=== PATIENT | male | born 1940 | race Caucasian/White ===

== ENCOUNTER → 2016-04-13 | Outpatient (CLI) | payer MEDICARE, BC ==
[~2016-04-13] MED LIST: ACID REDUCER75 M1 PO; ALBUTEROL17 GM INH; ALTACE PO; ASPIRIN PO; BAYER ASPIRIN325 M1 PO; C-10001000 M1 PO; CERTAGEN PO; COMBIVENT MININEB INH; COMBIVENT U/D3 M1 NEB; FISH OIL 1,0001 CAP PO; FISH OIL 1,2001 EAC4 PO; FLOVENT HFA10.6 G1 INH; FLOVENT HFA12 GM INH; FUROSEMIDE40 MG PO; GLUCOPHAGE500 M1 PO; GLUCOTROL PO; GLYBURIDE-METFO1 TA4; HYDROCODON-ACE1 EAC5 PO; HYDROCODON-ACE1 EAC9 PO; JANUVIA PO; JANUVIA100 MG PO; MEN'S DAILY FO1 EACH PO; METFORMIN HCL500 M3 PO; NEURONTIN800 MG PO; RAMIPRIL5 MG PO; SERTRALINE HCL50 M1 PO; SIMVASTATIN40 MG PO; VIT C PO; VITAMIN C500 MG PO; ZANTAC PO; ZOCOR PO
[2016-04-13 08:35] LABS: HEMATOCRIT 39.8 % (38.0-50.0); HEMOGLOBIN 13.1 gm/dL (13.0-16.0); MEAN CELL VOLUME 87.5 FL (83-96); MEAN CORPUSCULAR HEMOGLOBIN 28.8 PG (28-34); MEAN PLATELET VOLUME 7.8 FL (6.5-11.5); RED BLOOD COUNT 4.55 X10e (3.90-5.60); RED CELL DISTRIBUTION WIDTH 14.3 % (11.0-15.5); WHITE BLOOD COUNT 10.4 X10e3 (4.0-10.5)
[2016-04-13 09:03] LABS: PARTIAL THROMBOPLASTIN TIME 28.5 SECONDS (23.5-31.3); PROTHROMBIN TIME (PATIENT) 10.1 SECONDS (9.6-11.5)
== END | disposition home or self-care (01) ==
LOC: CIVR 08:09
PROVIDERS: Internal Medicine Pulmonary Disease
DX: R91.1 Solitary pulmonary nodule (principal)
CPT/HCPCS: 36415; 85027; 85610; 85730

== ENCOUNTER 2016-04-20 08:24 | Inpatient (IN) | payer MEDICARE, BC ==
--- NOTE | ~2016-04-20 | DS ---
Unit #: [id number] #: [id number] Patient: DOM DUMONT [id number] [address] [place], [place] [address] [id number] I MR#: [id number] NAME: DOM DUMONT ROOM: 204 Age: 75 Sex: M Admission Date: 04/20/2016 : 1940 Discharge Date: 04/23/2016 Attending Physician: Dinesh Rasmussen M.D. Referring Physician: Dinesh Rasmussen M.D. Primary Care Physician: Filemon Lagunas M.D. DISCHARGE SUMMARY FINAL DIAGNOSIS Right pneumothorax. OTHER DIAGNOSES 1. Right lung non-small cell lung cancer. 2. Chronic obstructive pulmonary disease. 3. Pulmonary fibrosis. CONSULTANTS Interventional Radiology, Dr. Wilmar De Leon. HOSPITAL COURSE Mr. Dumont is a 75-year-old male, found to have a fairly large right upper lobe mass with a satellite. He had PET scan, would suggest uptake and therefore a fine-needle aspirate was requested as an outpatient. He underwent FNA per IR on 04/20/2016, but after the procedure, he had a right pneumothorax. IR immediately placed the chest tube. He has been observed over the last couple of days and was doing better and therefore the chest tube was placed on water seal today. After discussing the case with Dr. De Leon, we proceeded to pull the right chest tube, because he had no air leak and his water seal chest x-ray was fine. We will check a chest x-ray in 2 hours at about 6:00 p.m., and if that is not revealing a pneumothorax, then he will be discharged. He should follow up with me in about 2 weeks. He is to follow up with Dr. Chandler, that he will be referred to Dr. Db Chandler as an outpatient for consideration of surgery. However, FEV1 was 1.69, 51% predicted back in 08/2015 and this mass was noted have a satellite nodule. Therefore, he may or may not be a candidate for surgery. DISCHARGE MEDICATIONS He will be discharged on the following medicines; albuterol inhaler two puffs b.i.d. p.r.n., Neurontin 800 mg p.o. b.i.d., sertraline 50 mg p.o. daily, Glucophage 500 mg p.o. daily, Januvia 100 mg p.o. daily, Lasix 40 mg p.o. daily, simvastatin 40 mg p.o. daily, ramipril 5 mg p.o. daily, Zantac/ranitidine 75 mg p.o. daily, Catherine aspirin 325 mg p.o. daily, Chatham 7.5/325 p.o. t.i.d., Glucotrol 5 mg p.o. q.a.m., and ascorbic acid 500 mg p.o. daily. Saturations were acceptable on room air. He does not need home O2. DISCHARGE INSTRUCTIONS Diet will be no concentrated sweets/consistent carbohydrate and activity will be as tolerated, but he should probably take it easy for the next week or two. He will not likely need home oxygen. Unit #: [id number] #: [id number] Patient: DOM DUMONT Dictated by... Keith Stockton/gavin TD: 04/23/2016 13:04 JOB #: [id number] DISCHARGE SUMMARY X Dinesh Rasmussen MD DISCHARGE SUMMARY
--- NOTE | ~2016-04-20 | CR71 ---
[facility] A Service of [facility] RADIOLOGY TEXT RESULTS PATIENT: DOM ROGERS LOCATION: [place] [address] : 41 UNIT #: [id number] AGE: [address]: Dinesh Rasmussen MD SEX: M ORDER DR: [id number] [place] [id number] [facility]. [place], [place] [address] [id number] MR#: [id number] Acc #: [id number] NAME: DOM ROGERS : 1940 SEX: M STUDY DATE/TIME: 04/20/2016 11:56 UNIT: CIVR ROOM: STUDY DESCRIPTION: CR Chest Single View Attending Physician: Dinesh Rasmussen M.D. Referring Physician: Dinesh Rasmussen M.D. Primary Care Physician: Filemon Lagunas M.D. MEDICAL IMAGING REPORT This report is preliminary unless electronic signature is present EXAM AP chest x-ray. HISTORY Right lung biopsy under CT guidance. Evaluate for pneumothorax. TECHNIQUE Single AP view of the chest was obtained. FINDINGS There is a right-sided pneumothorax that is most prominent at the apex. There is approximately 3-4 cm of separation between the top of the lung in the chest wall at the apex. There is also small extension of the pneumothorax laterally down to the costophrenic angle. There is no significant midline shift. No new infiltrates are seen. IMPRESSION Moderate right pneumothorax post biopsy, predominately at the apex. STAT * RESULT Dictated by... Robbie Javier M.D. THIS IS AN ELECTRONICALLY VERIFIED REPORT Robbie Javier M.D. at 04/20/2016 4:45 PM JAIRF/ilana TD: 04/20/2016 12:34 JOB #: [id number] [facility] A Service of [facility] RADIOLOGY TEXT RESULTS PATIENT: DOM ROGERS LOCATION: [facility] [address] [facility] #: [id number] : 41 UNIT #: [id number] AGE: [address]: Dinesh Rasmussen MD SEX: M ORDER DR: MEDICAL IMAGING REPORT COPY
--- NOTE | ~2016-04-20 | CR72 ---
[facility] A Service of [facility] & [facility] RADIOLOGY TEXT RESULTS PATIENT: DOM ROGERS LOCATION: A : 41 UNIT #: [id number] AGE: [address]: Dinesh Rasmussen MD SEX: M ORDER DR: [id number] [facility] [address] [place], [place] [address] [id number] I MR#: [id number] Acc #: [id number] NAME: DOM ROGERS : 1940 SEX: M STUDY DATE/TIME: 04/22/2016 18:16 UNIT: A ROOM: [facility] STUDY DESCRIPTION: CR Chest Single View Portable Attending Physician: Dinesh Rasmussen M.D. Referring Physician: Dinesh Rasmussen M.D. Ordering Physician: Dinesh Rasmussen M.D. Primary Care Physician: Filemon Lagunas M.D. MEDICAL IMAGING REPORT This report is preliminary unless electronic signature is present EXAM Portable chest 04/22/2016 HISTORY Chest tube removed. An AP view of the chest was obtained. FINDINGS Redemonstrated is the mass in the right upper lobe. There is extensive right-sided subcutaneous emphysema. The pigtail drain has been removed. CONCLUSION 1. Interim removal of right-sided pigtail drain with no pneumothorax. 2. Right upper lobe mass. 3. Chronic infiltrates throughout both lungs. Dictated by... Wesley Orta M.D. THIS IS AN ELECTRONICALLY VERIFIED REPORT Wesley Orta M.D. at 04/26/2016 5:10 PM MP/sabina TD: 04/23/2016 08:07 JOB #: [id number] MEDICAL IMAGING REPORT COPY
--- NOTE | ~2016-04-20 | CR72 ---
[facility] A Service of [facility] & [facility] RADIOLOGY TEXT RESULTS PATIENT: DOM ROGERS LOCATION: A : 41 UNIT #: [id number] AGE: [address]: Dinesh Rasmussen MD SEX: M ORDER DR: [id number] [facility] [address] [facility]. [place], [place] [address] [id number] I MR#: [id number] Acc #: [id number] NAME: DOM ROGERS : 1940 SEX: M STUDY DATE/TIME: 04/20/2016 12:48 UNIT: A ROOM: [facility] STUDY DESCRIPTION: CR Chest Single View Portable Attending Physician: Dinesh Rasmussen M.D. Referring Physician: Dinesh Rasmussen M.D. Ordering Physician: Dinesh Rasmussen M.D. Primary Care Physician: Filemon Lagunas M.D. MEDICAL IMAGING REPORT This report is preliminary unless electronic signature is present EXAM Portable chest. HISTORY 75-year-old male with follow-up pneumothorax from lung biopsy today. COMPARISON STUDIES Chest x-ray, earlier today. FINDINGS The patient's right-sided pneumothorax has increased in size. At this point, there is no mediastinal shift. The remainder of the study is unchanged. IMPRESSION There is a moderate-sized right pneumothorax, which overall has increased in size, compared with the initial post biopsy x-ray. There is no evidence of any mediastinal shift at this point. Dictated by... Wilmar De Leon M.D. THIS IS AN ELECTRONICALLY VERIFIED REPORT Wilmar De Leon M.D. at 04/20/2016 4:41 PM BOZENA/keaton TD: 04/20/2016 16:20 JOB #: [id number] MEDICAL IMAGING REPORT COPY
--- NOTE | ~2016-04-20 | CR72 ---
[facility] A Service of [facility] & [facility] RADIOLOGY TEXT RESULTS PATIENT: DOM ROGERS LOCATION: C2A : 41 UNIT #: [id number] AGE: [address]: Dinesh Rasmussen MD SEX: M ORDER DR: [id number] [facility] [address] [facility]. [place], [place] [address] [id number] I MR#: [id number] Acc #: [id number] NAME: DOM ROGESR : 1940 SEX: M STUDY DATE/TIME: 04/20/2016 15:28 UNIT: A ROOM: [facility] STUDY DESCRIPTION: CR Chest Single View Portable Attending Physician: Dinesh Rasmussen M.D. Referring Physician: Dinesh Rasmussen M.D. Primary Care Physician: Filemon Lagunas M.D. MEDICAL IMAGING REPORT This report is preliminary unless electronic signature is present EXAM Portable chest, 04/20/2016 INDICATION 75-year-old male with followup pneumothorax on the right. Comparison with chest x-ray from 04/20/2016 at 1248 hours. FINDINGS There has been placement of a pigtail chest tube and the pneumothorax has decreased in size now with a small residual apical component. The remainder of the study is unchanged. IMPRESSION New since the previous chest x-ray is a right pigtail chest tube. There has been decrease in size of a right-sided pneumothorax with a small residual right apical component. Dictated by... Wilmar De Leon M.D. THIS IS AN ELECTRONICALLY VERIFIED REPORT Wilmar De Leon M.D. at 04/22/2016 7:32 AM BOZENA/tomer TD: 04/21/2016 03:17 JOB #: [id number] MEDICAL IMAGING REPORT COPY
--- NOTE | ~2016-04-20 | CR72 ---
[facility] A Service of [facility] & [facility] RADIOLOGY TEXT RESULTS PATIENT: DOM ROGERS LOCATION: C2A 204 : 41 UNIT #: [id number] AGE: [address]: Dinesh Rasmussen MD SEX: M ORDER DR: [id number] [facility] [address] [facility] [place], [place] [address] [id number] I MR#: [id number] Acc #: [id number] NAME: DOM ROGERS : 1940 SEX: M STUDY DATE/TIME: 04/23/2016 9:13 UNIT: C2A ROOM: [facility] STUDY DESCRIPTION: CR Chest Single View Portable Attending Physician: Dinesh Rasmussen M.D. Referring Physician: Dinesh Rasmussen M.D. Ordering Physician: Dinesh Rasmussen M.D. Primary Care Physician: Filemon Lagunas M.D. MEDICAL IMAGING REPORT This report is preliminary unless electronic signature is present EXAM Portable chest HISTORY Short of air with activity since 04/20/2016. Pulmonary fibrosis. COPD. Coronary artery disease. Diabetes. Smoker. COMMENT Single frontal portable view of the chest timed 09:13 04/23/2016 compared to 04/22/2016. There is again a large amount of right-sided subcutaneous air. This is slightly improved from yesterday's film. There is an opacity in the right upper lung again seen concerning for a mass. Please correlate with known diagnosis. Appearance is most consistent with lung cancer. Please refer back to PET/CT from 03/31/2016. Heart size is normal. There are again extensive changes of pulmonary fibrosis with some peripheral pleural thickening or peripheral extension of the mass in the right upper lobe. No definite pneumothorax. On comparison to yesterday's film, the mass-like area appeared smaller. Please correlate with interval therapy. IMPRESSION Redemonstration of a right upper lobe mass apparently smaller since yesterday's film but please correlate for any interval therapy. Again identified is right-sided subcutaneous emphysema fairly extensive slightly improved. No pneumothorax is seen. Underlying changes of pulmonary fibrosis redemonstrated. Dictated by... [facility] A Service of [facility] & [facility] RADIOLOGY TEXT RESULTS PATIENT: DOM ROGERS LOCATION: [place] [address] : 41 UNIT #: [id number] AGE: [address]: Dinesh Rasmussen MD SEX: M ORDER DR: Funmilayo Yoder M.D. THIS IS AN ELECTRONICALLY VERIFIED REPORT Funmilayo Yoder M.D. at 04/23/2016 4:00 PM MARIA FERNANDA/maikel TD: 04/23/2016 12:49 JOB #: [id number] MEDICAL IMAGING REPORT COPY
--- NOTE | ~2016-04-20 | CR72 ---
[facility] A Service of [facility] & [facility] RADIOLOGY TEXT RESULTS PATIENT: DOM ROGERS LOCATION: C2A 204 : 41 UNIT #: [id number] AGE: [address]: Dinesh Rasmussen MD SEX: M ORDER DR: [id number] [facility] [address] [place], [place] [address] [id number] I MR#: [id number] Acc #: [id number] NAME: DOM ROGERS : 1940 SEX: M STUDY DATE/TIME: 04/21/2016 3:11 UNIT: A ROOM: [facility] STUDY DESCRIPTION: CR Chest Single View Portable Attending Physician: Dinesh Rasmussen M.D. Referring Physician: Dinesh Rasmussen M.D. Ordering Physician: Ayesha Pappas M.D. Primary Care Physician: Filemon Lagunas M.D. MEDICAL IMAGING REPORT This report is preliminary unless electronic signature is present EXAM AP portable chest DATE: 04/21/2016 at 03:11 HISTORY Follow up pneumothorax with chest tube placement. COMPARISON AP portable chest 04/20/2016 at 15:28. FINDINGS Right apical pneumothorax is nearly completely resolve with only tiny right apical pneumothorax component remaining. Extensive right chest wall subcutaneous emphysema, however, has developed in the interval. The patient's mass-like density or consolidative change in the right upper lobe is again noted demonstrated to better advantage on previous PET/CT. Emphysematous changes are present with bibasilar fibrosis and/or atelectasis. There is some new mild atelectatic type changes in the left lung base with probable trace left pleural effusion. Stable heart size. A pigtail drain remains appropriately position. Dictated by... Zoë Gan M.D. THIS IS AN ELECTRONICALLY VERIFIED REPORT Zoë Gan M.D. at 04/21/2016 10:25 PM LL/brendan TD: 04/21/2016 12:24 JOB #: [id number] [facility] A Service of [facility] & [facility] RADIOLOGY TEXT RESULTS PATIENT: DOM ROGERS LOCATION: [facility] 204- : 41 UNIT #: [id number] AGE: [address]: Dinesh Rasmussen MD SEX: M ORDER DR: MEDICAL IMAGING REPORT COPY
--- NOTE | ~2016-04-20 | CT134 ---
[facility] A Service of [facility] & [facility] RADIOLOGY TEXT RESULTS PATIENT: DOM ROGERS LOCATION: C2A : 41 UNIT #: [id number] AGE: [address]: Dinesh Rasmussen MD SEX: M ORDER DR: [id number] [place] [id number] [facility]. [place], [place] [address] [id number] I MR#: [id number] Acc #: [id number] NAME: DOM ROGERS : 1940 SEX: M STUDY DATE/TIME: 04/20/2016 11:24 UNIT: A ROOM: [facility] STUDY DESCRIPTION: CT Guide Attending Physician: Dinesh Rasmussen M.D. Referring Physician: Dinesh Rasmussen M.D. Ordering Physician: Dinesh Rasmussen M.D. Primary Care Physician: Filemon Lagunas M.D. MEDICAL IMAGING REPORT This report is preliminary unless electronic signature is present EXAM CT-guided right lung biopsy, 04/20/2016 INDICATIONS 75-year-old male with right lung mass suspicious for malignancy. Medications IV Versed and Fentanyl utilized for conscious sedation. Conscious sedation time was monitored by appropriately credentialed radiology nursing staff. The risks, benefits, and alternatives of the procedure were discussed with the patient including risk for pneumothorax and possible chest tube placement and informed consent was obtained. In the procedure room a time-out was performed confirming correct patient and procedure. All elements maximum sterile-barrier technique utilized according guidelines appropriate for the procedure. This CT exam was performed with one or more of the following radiation dose reduction techniques: automatic exposure control, adjustment of mA and/or kV according to patient size, and iterative reconstruction. TECHNIQUE Correlation is made with A PET/CT from 03/31/2016. Patient was placed in the supine position and a preliminary CT scan was performed to identify the right lung mass. The overlying skin was prepped and draped in the usual sterile fashion. 1% lidocaine was utilized to anesthetize the skin and underlying subcutaneous tissues. Next, under CT guidance, a 17-gauge guide needle was advanced into the mass using an anterior approach. Through this access, 3 cores were obtained using an 18 gauge needle. The needle was removed and a sterile dressing was applied. Postprocedure CT demonstrated a small pneumothorax ST[facility]. [facility] A Service of [facility] RADIOLOGY TEXT RESULTS PATIENT: DOM ROGERS LOCATION: [facility] 204-01 : 41 UNIT #: [id number] AGE: [address]: Dinesh Rasmussen MD SEX: M ORDER DR: in the right lung apex. IMPRESSION Technically successful CT-guided right lung biopsy. Dictated by... Wilmar De Leon M.D. THIS IS AN ELECTRONICALLY VERIFIED REPORT Wilmar De Leon M.D. at 04/22/2016 7:33 AM BOZENA/tomer TD: 04/21/2016 05:29 JOB #: [id number] MEDICAL IMAGING REPORT COPY
--- NOTE | ~2016-04-20 | XA96 ---
[facility] A Service of [facility] & [facility] RADIOLOGY TEXT RESULTS PATIENT: DOM ROGERS LOCATION: C2A : 41 UNIT #: [id number] AGE: [address]: Dinesh Rasmussen MD SEX: M ORDER DR: [id number] [facility] [address] [facility]. [place], [place] [address] [id number] I MR#: [id number] Acc #: [id number] NAME: DOM ROGERS : 1940 SEX: M STUDY DATE/TIME: 04/20/2016 13:01 UNIT: C2A ROOM: 204 STUDY DESCRIPTION: XA Chest Tube for Pneumo or pl Attending Physician: Dinesh Rasmussen M.D. Referring Physician: Dinesh Rasmussen M.D. Primary Care Physician: Filemon Laugnas M.D. MEDICAL IMAGING REPORT This report is preliminary unless electronic signature is present PROCEDURE Fluoroscopically guided right chest tube placement. INDICATIONS 75-year-old male with history of a right lung biopsy earlier today who now has an enlarging right pneumothorax and has become hypoxic and requiring increased oxygen demand. The fluoroscopy time was 1.6 minutes. Reference air kerma 7 mGy. Medications: IV Fentanyl utilized. Risks, benefits, and alternatives of the procedure were discussed with the patient and informed consent was obtained. In the procedure room a timeout was performed confirming correct patient and procedure. All elements of maximum sterile-barrier technique utilized according guidelines appropriate for the procedure. TECHNIQUE/FINDINGS Fluoroscopy of the right chest was performed. A skin site was marked in the second interspace anteriorly. Skin was prepped and draped in usual sterile fashion. 1% lidocaine utilized to anesthetize the skin and underlying subcutaneous tissues. Next, under fluoroscopic guidance the pleural space was entered with a 5-Gambian Yueh catheter and there is return of air. Next, a superstiff guidewire was advanced through the catheter. The catheter was removed and the track was dilated to 8-Gambian. Next, an 8-Gambian pigtail catheter was advanced into the upper pleural space. Spot images wee taken confirming satisfactory positioning. The chest tube was secured in place with suture and connected to Pleurovac drainage and hooked to wall suction. Final spot image after a short amount of time on wall suction demonstrated significant improvement with essentially resolution of the pneumothorax. Patient was then admitted to the hospital for chest tube management. [facility] A Service of [facility] & [facility] RADIOLOGY TEXT RESULTS PATIENT: DOM ROGERS LOCATION: [facility] : 41 UNIT #: [id number] AGE: [address]: Dinesh Rasmussen MD SEX: M ORDER DR: continuous suction overnight and then a chest x-ray should be performed in the morning to see if there is a persistent pneumothorax. If there is no pneumothorax then the chest tube should be clamped and repeat chest x-ray performed 2 hours after that. IMPRESSION Placement of a right-sided 8-Gambian pigtail chest tube due to enlarging symptomatic pneumothorax. Chest tube placed to wall suction. Please keep chest tube to wall suction overnight and obtain chest x-ray in the morning. Dictated by... Wilmar De Leon M.D. THIS IS AN ELECTRONICALLY VERIFIED REPORT Wilmar De Leon M.D. at 04/22/2016 7:33 AM BOZENA/russ TD: 04/21/2016 07:08 JOB #: [id number] MEDICAL IMAGING REPORT COPY
--- NOTE | ~2016-04-20 | CR72 ---
[facility] A Service of [facility] RADIOLOGY TEXT RESULTS PATIENT: DOM ROGERS LOCATION: [facility] : 41 UNIT #: [id number] AGE: [address]: Dinesh Rasmussen MD SEX: M ORDER DR: [id number] [facility] [address] [facility]. [place], [place] [address] [id number] I MR#: [id number] Acc #: [id number] NAME: DOM ROGERS : 1940 SEX: M STUDY DATE/TIME: 04/22/2016 15:43 UNIT: [facility] ROOM: [facility] STUDY DESCRIPTION: CR Chest Single View Portable Attending Physician: Dinesh Rasmussen M.D. Referring Physician: Dinesh Rasmussen M.D. Ordering Physician: Dinesh Rasmussen M.D. Primary Care Physician: Filemon Lagunas M.D. MEDICAL IMAGING REPORT This report is preliminary unless electronic signature is present EXAM Portable chest, 04/22/2016 COMPARISON 04/22/2016 HISTORY SUPPLIED Chest tube placement. FINDINGS An AP view of the chest is obtained and compared to the earlier film. The pigtail catheter over the right upper chest appears to have been repositioned since the last study. There is no pneumothorax. Right upper lobe mass persists. Interstitial infiltrates are present throughout both lungs. There is extensive subcutaneous emphysema on the right. CONCLUSION 1. Right-sided chest tube appears in appropriate position. 2. Right upper lobe mass, 3. Extensive bilateral interstitial infiltrates. 4. Subcutaneous emphysema, unchanged. Dictated by... Wesley Orta M.D. THIS IS AN ELECTRONICALLY VERIFIED REPORT Wesley Orta M.D. at 04/26/2016 5:09 PM MP/tomer TD: 04/23/2016 00:48 JOB #: [id number] [facility] A Service of [facility] RADIOLOGY TEXT RESULTS PATIENT: DOM ROGERS LOCATION: [facility] : 41 UNIT #: [id number] AGE: [address]: Dinesh Rasmussen MD SEX: M ORDER DR: MEDICAL IMAGING REPORT Page 1 of 1 COPY
--- NOTE | ~2016-04-20 | HP ---
Unit #: [id number] #: [id number] Patient: DOM DUMONT [id number] [address] [address] [id number] I MR#: [id number] NAME: DOM DUMONT ROOM: 204 Age: 75 Sex: M Admission Date: 04/20/2016 : 1940 Attending Physician: Dinesh Rasmussen M.D. Referring Physician: Dinesh Rasmussen M.D. Primary Care Physician: Filemon Lagunas M.D. HISTORY AND PHYSICAL HISTORY OF PRESENT ILLNESS Mr. Silver Dumont is a pleasant gentleman with a history of a lung mass. He is status post thoracentesis. He was seen in our office. He has a history of COPD and now presents with worsening shortness of breath and following an IR-guided thoracentesis where patient had a post procedure pneumothorax. The patient is complaining of some chest tightness but otherwise is feeling fine. We are asked to see him regarding persistent pneumothorax. PAST MEDICAL HISTORY Significant for: 1. COPD. 2. Diabetes. 3. Coronary artery disease. 4. Chronic diastolic heart failure. 5. Chronic kidney disease, stage 3. 6. Intermittent claudication. 7. Pulmonary fibrosis. 8. Solitary pulmonary nodule. 9. Chronic tobacco use. PAST SURGICAL HISTORY Significant for: Stent in 2000. SOCIAL HISTORY The patient is a current every day smoker. Patient smokes one and one-half pack per day. Patient has no history of polysubstance use. FAMILY HISTORY Negative. REVIEW OF SYSTEMS Positive for some chest tightness, some shortness of air as well as lower extremity swelling, erythema for approximately 1 year, edema, and painful to the touch. Otherwise, a 12-point review of systems is negative. PHYSICAL EXAMINATION VITAL SIGNS: T. current 97.4, pulse 97, respiratory rate 22, blood pressure 152/72. HEENT: Extraocular movements are intact. CHEST: Clear to auscultation bilaterally with some decreased breath sounds on the left side. Unit #: [id number] #: [id number] Patient: DOM DUMONT HEART: Regular rate, no gallop. ABDOMEN: Soft, nontender, nondistended. EXTREMITIES: Edema trace to +1. DIAGNOSTIC STUDIES LABORATORY: White count 9.9, hemoglobin 12.9, platelets 260. INR 1.0. IMAGING: Chest x-ray shows moderate pneumothorax post-biopsy predominantly at the apex. ASSESSMENT AND PLAN 1. Chronic obstructive pulmonary disease, status post biopsy, residual pneumothorax. Patient continues to have air leak. Will continue to low wall suction. 2. Chronic obstructive pulmonary disease. Will go ahead and do breathing treatments. 3. No evidence of pneumonia yet. Will continue to monitor left-sided atelectasis. Dictated by Keith Valladares/stormy TD: 04/20/2016 18:09 JOB #: [id number] HISTORY AND PHYSICAL X Thaddeus Pappas MD X HISTORY AND PHYSICAL
--- NOTE | ~2016-04-20 | CR72 ---
[facility] A Service of [facility] RADIOLOGY TEXT RESULTS PATIENT: DOM ROGERS LOCATION: C2A : 41 UNIT #: [id number] AGE: [address]: Dinesh Rasmussen MD SEX: M ORDER DR: [id number] [facility] [address] [place], [place] [address] [id number] I MR#: [id number] Acc #: [id number] NAME: DOM ROGERS : 1940 SEX: M STUDY DATE/TIME: 04/22/2016 8:12 UNIT: C2A ROOM: [facility] STUDY DESCRIPTION: CR Chest Single View Portable Attending Physician: Dinesh Rasmussen M.D. Referring Physician: Dinesh Rasmussen M.D. Ordering Physician: Ayesha Pappas M.D. Primary Care Physician: Filemon Lagunas M.D. MEDICAL IMAGING REPORT This report is preliminary unless electronic signature is present EXAM Frontal chest 04/22/2016 INDICATIONS 75-year-old male with a history of pneumothorax, shortness of air, chest pain, symptoms since 04/20/2016, history of right-sided chest tubes TECHNIQUE Frontal chest compared with 04/21/2016 FINDINGS Cardiac silhouette stable. Lung volumes are low. Small-bore pleural drain on the right remains present. There is extensive subcutaneous emphysema on the right. No distinct right-sided pneumothorax. Consolidation in the upper lung zone on the right is unchanged. Interstitial prominence throughout both lungs has increased slightly which may reflect worsening bronchovascular crowding or an element of mild interstitial edema. There is pleural thickening or a trace amount of pleural fluid blunting the left CP angle. IMPRESSION 1. Right-sided pigtail catheter remains present. No visible pneumothorax on today's examination. 2. Slight increase in interstitial prominence bilaterally which is nonspecific. 3. Mass-like consolidation in the upper lobe on the right is stable along with subcutaneous emphysema. Dictated by... Dangelo Velasquez M.D. THIS IS AN ELECTRONICALLY VERIFIED REPORT Dangelo Velasquez M.D. at 04/22/2016 2:23 PM [facility] A Service of [facility] RADIOLOGY TEXT RESULTS PATIENT: DOM ROGERS LOCATION: [facility] 204-01 : 41 UNIT #: [id number] AGE: [address]: Dinesh Rasmussen MD SEX: M ORDER DR: ALFIE/kenji TD: 04/22/2016 14:12 JOB #: [id number] MEDICAL IMAGING REPORT COPY
[2016-04-20 09:19] LABS: HEMATOCRIT 39.8 % (38.0-50.0); HEMOGLOBIN 12.9 gm/dL (13.0-16.0); MEAN CELL VOLUME 88.5 FL (83-96); MEAN CORPUSCULAR HEMOGLOBIN 28.7 PG (28-34); MEAN CORPUSCULAR HGB CONC 32.4 g/dL (30-36); MEAN PLATELET VOLUME 8.3 FL (6.5-11.5); RED BLOOD COUNT 4.5 X10e (3.90-5.60); RED CELL DISTRIBUTION WIDTH 14.4 % (11.0-15.5); WHITE BLOOD COUNT 9.9 X10e3 (4.0-10.5)
[2016-04-20 09:41] LABS: PARTIAL THROMBOPLASTIN TIME 29.7 SECONDS (23.5-31.3); PROTHROMBIN TIME (PATIENT) 10.2 SECONDS (9.6-11.5)
[2016-04-21 06:32] LABS: HEMATOCRIT 38.1 % (38.0-50.0); HEMOGLOBIN 12.1 gm/dL (13.0-16.0); MEAN CELL VOLUME 88.4 FL (83-96); MEAN CORPUSCULAR HEMOGLOBIN 28.1 PG (28-34); MEAN CORPUSCULAR HGB CONC 31.8 g/dL (30-36); MEAN PLATELET VOLUME 8.2 FL (6.5-11.5); RED BLOOD COUNT 4.31 X10e (3.90-5.60); RED CELL DISTRIBUTION WIDTH 14.5 % (11.0-15.5); WHITE BLOOD COUNT 11.1 X10e3 (4.0-10.5)
[2016-04-21 06:57] LABS: BUN/CREATININE RATIO 19.28; CALCIUM SERUM 8.3 mg/dL (8.4-10.2); CREATININE SERUM 1.4 mg/dL (0.6-1.4); GLOM FILT RATE Estimated 52.7 mL/min (>60); POTASSIUM 4.6 mmol/L (3.5-5.1)
== END 2016-04-23 11:53 | disposition home or self-care (01) | DRG 199 ==
LOC: CIVR 08:24 → C2A 13:16
PROVIDERS: Internal Medicine Pulmonary Disease
PROC: 0BBK3ZX Excision of Right Lung, Percutaneous Approach, Diagnostic (ICD-10-PCS; principal; 2016-04-20)
PROC: 0W9930Z Drainage of Right Pleural Cavity with Drainage Device, Percutaneous Approach (ICD-10-PCS; 2016-04-20)
PROC: BB12ZZZ Fluoroscopy of Right Lung (ICD-10-PCS; 2016-04-20)
DX: J95.811 Postprocedural pneumothorax (principal); J96.01 Acute respiratory failure with hypoxia; J84.10 Pulmonary fibrosis, unspecified; I50.32 Chronic diastolic (congestive) heart failure; L03.119 Cellulitis of unspecified part of limb; C34.91 Malignant neoplasm of unspecified part of right bronchus or lung; J44.9 Chronic obstructive pulmonary disease, unspecified; F17.210 Nicotine dependence, cigarettes, uncomplicated; Y83.8 Other surgical procedures as the cause of abnormal reaction of the patient, or of later complication, without mention of misadventure at the time of the procedure; Y92.531 Health care provider office as the place of occurrence of the external cause; E11.9 Type 2 diabetes mellitus without complications; Z79.84 Long term (current) use of oral hypoglycemic drugs; I25.10 Atherosclerotic heart disease of native coronary artery without angina pectoris; N18.3 Chronic kidney disease, stage 3 (moderate)
CPT/HCPCS: 36415; 71010; 77002; 77012; 80048; 82308; 82947; 85027; 85610; 85730; 88305; 88341; 88342; 94640; 94760; 94761; 94762; J2250; J3010

== ENCOUNTER → 2016-06-03 | Outpatient (CLI) | payer MEDICARE, BC ==
[2016-06-03 10:28] LABS: ARTERIAL BLD GAS O2 SATURATION 91.9 % (90.0-100.0); ARTERIAL BLOOD GAS CARBOXY HB 1.2 %sat (0.0-9.0); ARTERIAL BLOOD GAS HCO3 28.6 mmol/L; ARTERIAL BLOOD GAS MET HB 0.6 %sat (0.0-2.0); ARTERIAL BLOOD GAS PCO2 43.1 mmHg (35.0-45.0); ARTERIAL BLOOD GAS pH 7.431 (7.350-7.450)
[2016-06-03 10:29] LABS: ARTERIAL BLOOD GAS ALLEN TEST N; ARTERIAL BLOOD GAS ART SITE LEFT RADIAL; ARTERIAL BLOOD GAS PO2 67.1 mmHg (80.0-100); ARTERIAL DRAW? YES
== END | disposition home or self-care (01) ==
LOC: CRC 09:34
PROVIDERS: Surgery
DX: C34.90 Malignant neoplasm of unspecified part of unspecified bronchus or lung (principal)
CPT/HCPCS: 36600; 82803; 94060; 94726; 94729

== ENCOUNTER → 2016-06-09 | Outpatient (CLI) | payer MEDICARE, BC ==
--- NOTE | ~2016-06-09 | MR17 ---
[facility] A Service of [facility] RADIOLOGY TEXT RESULTS PATIENT: DOM ROGERS LOCATION: CMRI : 41 UNIT #: [id number] AGE: [address]: Db Chandler MD SEX: M ORDER DR: [id number] [facility] [address] [place], [place] [address] [id number] O MR#: [id number] Acc #: [id number] NAME: DOM ROGERS : 1940 SEX: M STUDY DATE/TIME: 06/09/2016 8:00 UNIT: CMRI ROOM: STUDY DESCRIPTION: MR Brain WWo Contrast Attending Physician: Db Chandler M.D. Referring Physician: Db Chandler M.D. Ordering Physician: Db Chandler M.D. Primary Care Physician: Filemon Lagunas M.D. MRI CENTER REPORT This report is preliminary unless electronic signature is present. EXAM MRI of the brain with and without contrast dated 06/09/2016. COMPARISON None HISTORY Lung cancer with metastasis workup. Patient was recently diagnosed 3 months ago. FINDINGS Multisequence, multiplanar imaging of the brain was obtained with and without contrast. 18 mL of MultiHance was administered intravenously. A few small scattered nonenlarged, nonenhancing, hyperintense T2 tiny lesions are noted in the white matter, particularly in the subcortical and to a lesser degree in the periventricular region. No acute stroke, hemorrhage, hydrocephalus, or midline shift is seen. Postcontrast sequences do not demonstrate enhancing lesions. Imaged orbits with the ocular structures and adjacent paranasal sinuses are unremarkable. Nasal septum is deviated to the left in the posterior aspect. There is mild left mastoid mucosal thickening. Thick slices through the sella with the pituitary gland and pineal region are unremarkable. Mild degenerative changes are in the cervical spine. IMPRESSION 1. No metastasis. 2. Nonenhancing, nonspecific small few hyperintense T2-signal lesions are noted in the white matter, likely related to mild chronic microvascular ischemic change or a migraine based on age and statistics. [facility] A Service of [facility] RADIOLOGY TEXT RESULTS PATIENT: DOM ROGERS LOCATION: CMRI : 41 UNIT #: [id number] AGE: [address]: Db Chandler MD SEX: M ORDER DR: Dictated by... Mi Keyes M.D. THIS IS AN ELECTRONICALLY VERIFIED REPORT Mi Keyes M.D. at 06/10/2016 3:19 PM CPR/tmw TD: 06/09/2016 15:29 JOB #: [id number] MRI CENTER REPORT Page 1 of 1 COPY
--- NOTE | ~2016-06-09 | MR2 ---
[facility] A Service of [facility] RADIOLOGY TEXT RESULTS PATIENT: DOM ROGERS [facility] UNIT #: [id number] AGE: [address]: Db Chandler MD SEX: M ORDER DR: [id number] [facility] [address] [place], [place] [address] [id number] O MR#: [id number] Acc #: [id number] NAME: DOM ROGERS : 1940 SEX: M STUDY DATE/TIME: 06/09/2016 8:27 UNIT: CMRI ROOM: STUDY DESCRIPTION: MR Abdomen WWo Cont Attending Physician: Db Chandler M.D. Referring Physician: Db Chandler M.D. Ordering Physician: Db Chandler M.D. Primary Care Physician: Filemon Lagunas M.D. MRI CENTER REPORT This report is preliminary unless electronic signature is present. EXAM MRI abdomen with and without contrast INDICATION Lung cancer staging. Observation for hepatic metastatic disease. Possible liver lesion on previous PET/CT. PROCEDURE Multiplanar, multisequence MR imaging of the abdomen prior to and following 18 mL of MultiHance. COMPARISON PET/CT from 03/31/2016. FINDINGS ABDOMEN WITHOUT CONTRAST: Liver has normal size morphology. The spleen, adrenal glands, pancreas, gallbladder, biliary system have normal signal. There are bilateral renal cysts, largest on the right measures 2.6 cm and largest on the left measures 2.8 cm. The bowel loops are nondilated. There are scattered uncomplicated colonic diverticula. ABDOMEN WITH CONTRAST: There is no abnormal enhancement in the abdomen; specifically, no liver lesion. IMPRESSION 1. No acute findings. 2. No evidence for metastatic disease in the abdomen, particularly no liver lesion. 3. Bilateral renal cysts. [facility] A Service [facility] RADIOLOGY TEXT RESULTS PATIENT: DOM ROGERS [facility] UNIT #: [id number] AGE: [address]: Db Chandler MD SEX: M ORDER DR: Dictated by... Ronaldo Chatterjee M.D. THIS IS AN ELECTRONICALLY VERIFIED REPORT Ronaldo Chatterjee M.D. at 06/10/2016 7:21 AM DOMINIK/maikel TD: 06/09/2016 12:58 JOB #: [id number] MRI CENTER REPORT Page 1 of 1 COPY
--- NOTE | ~2016-06-09 | CR98 ---
[facility] A Service of [facility] RADIOLOGY TEXT RESULTS PATIENT: MATEO ROGERS LOCATION: CMRI : 41 UNIT #: [id number] AGE: [address]: Db Chandler MD SEX: M ORDER DR: [id number] [facility] [address] [place], [place] [address] [id number] O MR#: [id number] Acc #: [id number] NAME: MATEO ROGERS : 1940 SEX: M STUDY DATE/TIME: 06/09/2016 7:31 UNIT: CMRI ROOM: STUDY DESCRIPTION: CR Eye FB Royce Attending Physician: Db Chandler M.D. Referring Physician: Db Chandler M.D. Primary Care Physician: Filemon Lagunas M.D. MEDICAL IMAGING REPORT This report is preliminary unless electronic signature is present EXAM Orbits 2 views, 06/09/2016 HISTORY Preop screening for MRI. History of metal in eye. FINDINGS Negative screening exam. No evidence of metallic foreign body. Dictated by... Mateo Frances M.D. THIS IS AN ELECTRONICALLY VERIFIED REPORT Mateo Frances M.D. at 06/14/2016 10:40 AM Ger TD: 06/09/2016 10:33 JOB #: [id number] MEDICAL IMAGING REPORT Page 1 of 1 COPY
[2016-06-09 12:56] LABS: POC - CREATININE 1.27 mg/dL (0.64-1.27)
== END | disposition home or self-care (01) ==
LOC: CMRI 06:42
PROVIDERS: Surgery
DX: C34.90 Malignant neoplasm of unspecified part of unspecified bronchus or lung (principal); N28.1 Cyst of kidney, acquired; R90.89 Other abnormal findings on diagnostic imaging of central nervous system
CPT/HCPCS: 70030; 70553; 74183; 82565; A9577